=== PATIENT | male | born 1950 | race Caucasian/White ===

== ENCOUNTER 2021-04-16 20:04 | Observation (INO) | payer MEDICARE, OTHER, SELFPAY ==
[2021-04-16] VITALS (10 sets, daily range): BP systolic 114–150; BP diastolic 68–85; PULSE 51–62; RESP 13–18; TEMP 36.4; O2SAT 96–100
--- NOTE | 2021-04-16 20:13 | DI.RAD.S_ITS ---
PROCEDURE: XR CHEST 1V INDICATIONS: chest pain TECHNIQUE: One view of the chest was acquired. COMPARISON: None. FINDINGS: Surgical changes and devices: None. Lungs and pleura: Lungs are clear. No pleural effusions or pneumothorax. Mediastinum: Mediastinal contours appear normal. Heart size is normal. Bones and chest wall: No suspicious bony lesions. Overlying soft tissues appear unremarkable. IMPRESSION: No evidence acute pulmonary process. Dictated by: Valentín Hollins M.D. on 04/16/2021 at 20:56 Approved by: Valentín Hollins M.D. on 04/16/2021 at 20:57
--- NOTE | 2021-04-16 20:15 | ED_ITS ---
HPI - Chest Pain General Chief Complaint: Chest Pain Stated Complaint: not feeling right, hx of mild heart attack Time Seen by Provider: 04/16/21 20:13 History of Present Illness HPI narrative: 70M nonsmoker with history of mild heart attack presents with his in the chief complaint of left-sided chest pressure with radiation down his left arm that started about 2 hours ago. He was working in his garage on a [id number] when his symptoms started he states he felt a bit weird, more fatigued than normal with the pressure as noted. He states he thinks he gets worse with exertion and seems to have improved with rest. He denies associated symptoms such as nausea, vomiting or diarrhea. He has had no unexplained diaphoresis. He denies any change in medications or dietary change. Related Data Allergies Allergy/AdvReac Type Severity Reaction Status Date / Time No Known Drug Allergies Allergy Verified 04/16/21 20:41 Review of Systems Review of Systems Narrative: GENERAL: Denies chills, fatigue, malaise, fever, sweats. HEENT: Denies sinus pain, ear pain, sore throat, difficulty swallowing, dizziness. RESPIRATORY: See HPI CARDIOVASCULAR: See HPI GASTROINTESTINAL: Denies nausea, vomiting, abdominal pain, diarrhea, constipation, melena. : Denies dysuria, frequency, incontinence, hematuria, urinary retention. MUSCULOSKELETAL: denies weakness, joint pain, or bony pain SKIN: Denies rash, skin lesions, or other NEUROLOGIC: Denies weakness, headache, numbness, change in speech, confusion, seizures, incoordination. PSYCHIATRIC: No concerning psychosocial issues. 12 point review of systems is negative except for those stated above Patient History Medical History (Updated 04/17/21 @ 03:36 by Dallin Valles DO) Diabetes type 2, controlled Essential hypertension Hyperlipidemia Surgical History (Updated 04/17/21 @ 01:44 by MOE Alexander) Amputation of left thumb Social History household members: spouse Smoking Status: Former smoker alcohol intake: former Exam Narrative Exam Narrative: GENERAL: [70] year old patient appears stated age. Well- developed patient, in mild distress. HEAD: Atraumatic. Normocephalic. EYES: Pupils equal round and reactive. Extraocular motions intact. No scleral icterus. No injection or drainage. ENT: Nose without bleeding, purulent drainage. Throat without erythema, tonsillar hypertrophy or exudate. Airway patent. NECK: Trachea midline. Non tender CARDIOVASCULAR: Regular rate and rhythm without murmurs, gallops, or rubs. RESPIRATORY: Clear to auscultation. Breath sounds equal bilaterally. No wheezes, rales, or rhonchi. GASTROINTESTINAL: Abdomen soft, non-tender, nondistended. EXTREMITIES: No edema or joint tenderness. BACK: Nontender without deformity or crepitance. No flank tenderness. NEURO: AOx3. SKIN: No rash or erythema of visible areas Initial Vital Signs Initial Vital Signs: Vital Signs Temperature 97.5 F L 04/16/21 20:13 Pulse Rate 61 04/16/21 20:13 Respiratory Rate 18 04/16/21 20:13 Blood Pressure 116/70 04/16/21 20:13 Pulse Oximetry 100 04/16/21 20:13 Course Orders Ordered: ED Orders 04/16/21 20:13 XR chest 1V Stat 04/16/21 20:15 EKG-12 Lead Stat 04/16/21 20:20 Complete Blood Count AUTO DIFF Stat Comprehensive Metabolic Panel Stat Lipase Stat NT-proBNP (BNP-Adult 18+) Stat Troponin & CK Cardiac Panel Stat 04/16/21 20:53 EKG-12 Lead Routine 04/16/21 22:03 COVID19 - ADMIT ([employer] swab/PCR) Stat Acetaminophen (Acetaminophen 325 Mg Tablet) 650 mg PO Q6HR PRN PRN Reason: Fever/Mild Pain (1-3) Aspirin (Aspirin Ec 81 Mg Tablet) 81 mg PO DAILY YOHAN Atorvastatin Calcium (Atorvastatin 20 Mg Tablet) 40 mg PO BEDTIME YOHAN Dextrose (Dextrose 50 % In Water 25 Gm/50 Ml Syringe) 25 gm IV PRN PRN PRN Reason: Hypoglycemia Dextrose (Dextrose 50 % In Water 25 Gm/50 Ml Syringe) 25 gm IV PRN PRN PRN Reason: Hypoglycemia Donepezil HCl (Donepezil 5 Mg Tablet) 10 mg PO BEDTIME YOHAN Enoxaparin Sodium (Enoxaparin 40 Mg/0.4 Ml Syringe) 40 mg SUBCUT DAILY [facility] Sodium Chloride (Normal Saline 0.9%) 1,000 mls @ 150 mls/hr IV CONT YOHAN Last Infusion: 04/17/21 00:07 Dose: 150 mls/hr Documented by: Admin: 04/16/21 20:35 Dose: 150 mls/hr Documented by: LYNDON Insulin Human Lispro (Insulin Lispro 100 Unit/Ml 3ml Vial) 0 unit SUBCUT ACHS YOHAN; Protocol Lisinopril (Lisinopril 20 Mg Tablet) 20 mg PO DAILY YOHAN Metoprolol Succinate (Metoprolol Er 50 Mg Tablet) 50 mg PO DAILY YOHAN Morphine Sulfate (Morphine 2 Mg/Ml Inj) 2 mg IV Q5MIN PRN PRN Reason: Chest Pain Naloxone HCl (Naloxone 0.4 Mg/Ml Vial) 0.2 mg IV Q2MIN PRN PRN Reason: Opiate Reversal Nitroglycerin (Nitroglycerin 0.4 Mg Sl Tab) 0.4 mg SL [id number] PRN PRN Reason: Chest Pain Last Admin: 04/16/21 20:36 Dose: 0.4 mg Documented by: LYNDON Nitroglycerin (Nitroglycerin 0.4 Mg Sl Tab) 0.4 mg SL [id number] PRN PRN Reason: Chest Pain Ondansetron HCl (Ondansetron 4 Mg/2 Ml Inj) 4 mg IV Q8HR PRN PRN Reason: Nausea And Vomiting Discontinued Medications Aspirin (Aspirin 81 Mg Chew Tab) 324 mg PO NOW ONE Stop: 04/16/21 20:14 Last Admin: 04/16/21 20:34 Dose: 324 mg Documented by: LYNDON Atorvastatin Calcium (Atorvastatin 20 Mg Tablet) 20 mg PO BEDTIME YOHAN Vital Signs Vital signs: Vital Signs - 8 hr 04/16/21 20:13 04/16/21 20:15 04/16/21 20:36 Temperature 97.5 F L Pulse Rate 61 57 L 57 L Respiratory Rate 18 Blood Pressure 116/70 150/85 H 150/85 H Pulse Oximetry 100 99 04/16/21 20:45 04/16/21 21:00 04/16/21 21:30 Temperature Pulse Rate 62 57 L 55 L Respiratory Rate 13 16 15 Blood Pressure 120/68 119/71 114/68 Pulse Oximetry 96 97 98 04/16/21 22:00 Temperature Pulse Rate 54 L Respiratory Rate 14 Blood Pressure 129/70 Pulse Oximetry 99 MDM - Chest Pain Lab Data Result diagrams: 04/16/21 20:20 04/16/21 20:20 Labs: Lab Results 04/16/21 04/16/21 04/16/21 Range/Units 20:20 20:20 20:20 WBC 5.3 (4.5-11.0) X10^3/uL RBC 4.75 (4.5-5.9) X10^6/uL Hgb 14.1 (13.5-17.5) g/dL Hct 42.8 (41-53) % MCV 89.9 (80-100) fL MCH 29.7 (26-34) PG MCHC 33.0 (30-36) % RDW 14.2 (11.6-14.8) % Plt Count 238 (150-400) X10^3/uL Neut % (Auto) 63.5 (50-75) % Lymph % (Auto) 21.6 L (25-40) % [place] % (Auto) 9.8 (3-14) % Eos % (Auto) 4.2 H (2-4) % Baso % (Auto) 0.9 (0-2) % Neut # (Auto) 3400 (1839-2579) /uL Lymph # (Auto) 1100 (9304-8923) /uL [place] # (Auto) 500 (0-900) /uL Eos # (Auto) 200 (0-450) /uL Baso # (Auto) 100 (0-100) /uL Sodium 139 (137-145) mmol/L Potassium 4.1 (3.4-5.1) mmol/L Chloride 104 (98-107) mmol/L Carbon Dioxide 28 (22-32) mmol/L BUN 19 (9-20) mg/dL Creatinine 1.20 (0.66-1.25) mg/dL Estimated GFR 59.9 L (>60) mL/min BUN/Creatinine Ratio 15.8 (6-22) Glucose 124 H (80-110) mg/dL Hemoglobin A1c 5.6 (4.0-6.0) % Calcium 9.6 (8.4-10.2) mg/dL Total Bilirubin 0.3 (0.2-1.3) mg/dL AST 38 (17-59) IU/L ALT 31 (<50) IU/L Alkaline Phosphatase 95 (38-126) U/L Total Creatine Kinase 209 H (55-170) U/L CK-MB (CK-2) 1.75 (<2.37) ng/mL CK-MB (CK-2) Rel Index 0.8 L (1.5-5.0) % Troponin I < 0.012 (0.01-0.034) ng/mL NT-Pro-B Natriuret Pep 54 (<125) pg/mL Total Protein 7.1 (6.3-8.2) g/dL Albumin 4.6 (3.5-5.0) g/dL Globulin 2.5 (1.7-4.1) g/dL Albumin/Globulin Ratio 1.8 (1.0-2.8) Lipase 140 (23-300) U/L SARS-CoV-2 (PCR) (Negative) 04/16/21 Range/Units 22:03 WBC (4.5-11.0) X10^3/uL RBC (4.5-5.9) X10^6/uL Hgb (13.5-17.5) g/dL Hct (41-53) % MCV (80-100) fL MCH (26-34) PG MCHC (30-36) % RDW (11.6-14.8) % Plt Count (150-400) X10^3/uL Neut % (Auto) (50-75) % Lymph % (Auto) (25-40) % [place] % (Auto) (3-14) % Eos % (Auto) (2-4) % Baso % (Auto) (0-2) % Neut # (Auto) (9009-3776) /uL Lymph # (Auto) (5921-4502) /uL [place] # (Auto) (0-900) /uL Eos # (Auto) (0-450) /uL Baso # (Auto) (0-100) /uL Sodium (137-145) mmol/L Potassium (3.4-5.1) mmol/L Chloride (98-107) mmol/L Carbon Dioxide (22-32) mmol/L BUN (9-20) mg/dL Creatinine (0.66-1.25) mg/dL Estimated GFR (>60) mL/min BUN/Creatinine Ratio (6-22) Glucose (80-110) mg/dL Hemoglobin A1c (4.0-6.0) % Calcium (8.4-10.2) mg/dL Total Bilirubin (0.2-1.3) mg/dL AST (17-59) IU/L ALT (<50) IU/L Alkaline Phosphatase (38-126) U/L Total Creatine Kinase (55-170) U/L CK-MB (CK-2) (<2.37) ng/mL CK-MB (CK-2) Rel Index (1.5-5.0) % Troponin I (0.01-0.034) ng/mL NT-Pro-B Natriuret Pep (<125) pg/mL Total Protein (6.3-8.2) g/dL Albumin (3.5-5.0) g/dL Globulin (1.7-4.1) g/dL Albumin/Globulin Ratio (1.0-2.8) Lipase (23-300) U/L SARS-CoV-2 (PCR) Negative (Negative) Imaging Data Chest x-ray: Radiologist's Impression: [address] [address] XRay Report Signed Patient: Chon Nguyễn MR#: [id number] : 1950 Acct:[id number] Age/Sex: 70 / M Date of Service: 04/16/21 Loc: ED Accession Number: [id number] ?? Procedure: XR chest 1V Ordering Provider: Dallin Valles D.O. PROCEDURE:? XR CHEST 1V ? INDICATIONS:? chest pain ? TECHNIQUE:? One view of the chest was acquired.? ? COMPARISON:? None. ? FINDINGS:? ? Surgical changes and devices:? None.? ? Lungs and pleura:? Lungs are clear.? No pleural effusions or pneumothorax.? ? Mediastinum:? Mediastinal contours appear normal.? Heart size is normal.? ? Bones and chest wall:? No suspicious bony lesions.? Overlying soft tissues appear unremarkable.? ? IMPRESSION:? No evidence acute pulmonary process. ? ? ? Dictated by: Valentín Hollins M.D. on 04/16/2021 at 20:56 ? ? Approved by: Valentín Hollins M.D. on 04/16/2021 at 20:57 ? MDM Narrative Medical decision making narrative: Patient with a concerning presentation of left-sided present chest pressure and radiation to his left arm that seemed to improve slightly with rest. Multiple EKGs are nonocclusive and troponin is unremarkable. Pain went away completely with nitro. Patient requires hospita lization for trending of cardiac enzymes and inpatient workup including echo and stress test Discharge Plan Departure Patient Disposition: Admitted as Observation Clinical Impression: Chest pain Admit Date/Time: 04/16/21 22:04 Admit Provider: Cinthia Fournier
[2021-04-16 20:25] LABS: Add Manual Diff / Slide Review NO; Basophils Absolute Auto 100 /uL (0-100); Basophils Percent Auto 0.9 % (0-2); Eosinophils Absolute Auto 200 /uL (0-450); Eosinophils Percent Auto 4.2 % (2-4); Hematocrit 42.8 % (41-53); Hemoglobin 14.1 g/dL (13.5-17.5); Lymphocytes Absolute Auto 1100 /uL (1100-4500); Lymphocytes Percent Auto 21.6 % (25-40); Mean Corpuscular Hemoglobin 29.7 PG (26-34); Mean Corpuscular Volume 89.9 fL (80-100); Monocytes Absolute Auto 500 /uL (0-900); Monocytes Percent Auto 9.8 % (3-14); Neutrophils Absolute Auto 3400 /uL (1500-7000); Neutrophils Percent Auto 63.5 % (50-75); Platelet Count 238 X10^3/uL (150-400); Red Blood Cell Count 4.75 X10^6/uL (4.5-5.9); Red Cell Distribution Width 14.2 % (11.6-14.8); White Blood Cell Count 5.3 X10^3/uL (4.5-11.0)
[2021-04-16] MEDS: ASPIRIN 81 MG CHEW TAB 324 MG PO (20:34)
[2021-04-16] MEDS: SODIUM CHLORIDE 0.9% 1,000 ML 150 ML IV (20:35)
[2021-04-16] MEDS: NITROGLYCERIN 0.4 MG SL TAB SL (20:36)
[2021-04-16 20:48] LABS: Alanine Aminotransferase 31 IU/L (<50); Albumin 4.6 g/dL (3.5-5.0); Albumin Globulin Ratio 1.8 (1.0-2.8); Alkaline Phosphatase 95 U/L (38-126); Aspartate Aminotransferase 38 IU/L (17-59); BUN Creatinine Ratio 15.8 (6-22); Bilirubin Total 0.3 mg/dL (0.2-1.3); Blood Urea Nitrogen 19 mg/dL (9-20); Calcium 9.6 mg/dL (8.4-10.2); Carbon Dioxide 28 mmol/L (22-32); Chloride 104 mmol/L (98-107); Creatine Kinase 209 U/L (55-170); Estimated Glomerular Filt Rate 59.9 mL/min (>60); Globulin 2.5 g/dL (1.7-4.1); Glucose 124 mg/dL (80-110); HEMOLYSIS 17 (0-50); Lipase 140 U/L (23-300); Potassium 4.1 mmol/L (3.4-5.1); Sodium 139 mmol/L (137-145); Total Protein 7.1 g/dL (6.3-8.2)
[2021-04-16 21:00] LABS: NT-proBNP (BNP-Adult 18+) 54 pg/mL (<125); Troponin I < 0.012 ng/mL (0.01-0.034)
[2021-04-16 21:03] LABS: CKMB % Relative Index 0.8 % (1.5-5.0); Creatine Kinase MB 1.75 ng/mL (<2.37)
[2021-04-16 23:05] LABS: COVID19 - ADMIT (NP swab/PCR) Negative (Negative)
--- NOTE | 2021-04-17 | DI.ECHO.S_ITS ---
[place] [facility]---------+ [facility] +---------+ : : [address] : : : : [id number] : : : : Phone: [phone]+ Echocardiogram Report + + :Name: SHUN CORNELL Study Date: 04/17/2021 Height: 69 in : :[facility] ReadingLocation: Weight: 190 lb : : Gender: Male BSA: 2.0 m2 : :: 1950 Age: 71 yrs BP: 119/71 mmHg: :Reason For Study: CHEST PAIN : :Ordering Physician: Tony PAIZformed By: Caitlin Ag : :Referring: CONCHIS PAIZ : + + Interpretation Summary 1) Normal left ventricular thickness, size, wall motion, and systolic function (EF 60-65%). 2) Upper normal right ventricular size with normal function. 3) There is mild aortic regurgitation. 4) No prior Echo available for comparison. Procedure: A two-dimensional transthoracic echocardiogram with color flow and Doppler was performed. The study quality was technically adequate. There is no prior echocardiogram noted for this patient. The patient was in sinus rhythm with heart rates between 52-62 bpm during the exam. Left Ventricle: The left ventricle is normal in size and wall thickness. The ejection fraction is estimated to be 60-65%. Left ventricular systolic function appears normal without focal wall motion abnormalities. Right Ventricle: The right ventricle is at the upper limits of normal in size. The right ventricular systolic function is normal. Atria: The left atrium is mildly dilated. The right atrium is moderately dilated. There is no Doppler evidence for an interatrial shunt. Mitral Valve: The mitral valve is normal in structure and function. There is trace mitral regurgitation. Aortic Valve: The aortic valve is trileaflet. The aortic valve opens well. There is no aortic valve stenosis. There is mild aortic regurgitation. Tricuspid Valve: The tricuspid valve is normal in structure and function. There is trace tricuspid regurgitation. Pulmonary artery pressures cannot be estimated because of the lack of a measurable TR jet velocity but the IVC suggests a CVP of around 3 mmHg. Pulmonic Valve: The pulmonic valve leaflets are thin and pliable; valve motion is normal. There is trace pulmonic regurgitation. Great Vessels: The aortic root is normal size. The ascending aorta is at the upper limits of normal in size. The IVC is of normal diameter and collapses greater than 50% with a sniff. This suggests a low right atrial pressure of 3 mm Hg. Pericardium/ Pleura There is no pericardial effusion. There is no pleural effusion. MMode/2D Measurements & Calculations LVIDd: 5.3 cm LVOT diam: 2.1 cm LVIDs: 3.5 cm Ao root diam: 3.5 cm FS: 34.9 % asc Aorta Diam: 3.4 cm IVSd: 1.0 cm LVPWd: 0.74 cm LV hirsch. diameter/BSA (cm/m^2): 2.6 LV sys. diameter/BSA (cm/m^2): 1.7 LA A2 area: 23.4 cm2 RA long axis: 6.0 cm LA A4 area: 21.0 cm2 RA area: 24.9 cm2 LA length (vol): 5.8 cm RA vol: 87.5 ml LA vol: 72.4 ml RA : 43.3 ml/m2 LA vol index: 35.8 ml/m2 IVC diam: 1.6 cm RVD1 (basal): 4.2 cm TAPSE: 2.6 cm Doppler Measurements & Calculations Ao V2 max: 123.0 cm/sec LVOT Max Cl: 90.3 cm/sec Ao V2 mean: 86.8 cm/sec LV V1 max P.3 mmHg Ao max P.1 mmHg LV V1 VTI: 21.3 cm Ao mean P.4 mmHg LETI(I,D): 2.6 cm2 Ao V2 VTI: 29.3 cm LETI(V,D): 2.6 cm2 sev ratio: 0.73 LETI indexed to BSA (cm^2/m^2): 1.3 MV E max cl: 89.8 cm/sec PA V2 max: 81.0 cm/sec MV A max cl: 100.0 cm/sec PA V2 mean: 54.1 cm/sec MV E/A: 0.90 PA mean P.4 mmHg Med Peak E' Cl: 5.8 cm/sec PA pr(Accel): 27.6 mmHg E/E' med: 15.6 Lat Peak E' Cl: 8.1 cm/sec E/E' lat: 11.1 E/e' average: 13.3 MV dec time: 0.30 sec SV(LVOT): 76.6 ml Reading Physician:12:32 PM
[2021-04-17 00:02] VITALS: BMI 28.0
[2021-04-17 00:23] VITALS: BP 149/69; PULSE 56; RESP 16; TEMP 36.2; O2SAT 99
--- NOTE | 2021-04-17 01:37 | PM.HP.1 ---
History of Present Illness History of Present Illness Date Patient Seen: 04/17/21 Time Patient Seen: 00:30 Chief complaint: not feeling right, hx of mild heart attack Narrative: Chon Nguyễn is a 71-year-old male resident of [place] who has medical history of hypertension, ?prediabetes, and a fairly new diagnosis of memory impairment and Alzheimer's presented to the emergency department with left-sided chest pain that he felt after dinner that resolved with rest and nitroglycerin. He only describes it as ?not feeling right?. He states that he was told at least 20 years ago that he had a prior heart attack. He denies headaches, fevers sweats or chills, difficulty swallowing, shortness of breath, nausea vomiting, abdominal pain, dysuria, diarrhea or constipation, weakness or tingling of the upper and lower extremities, or rashes. In the emergency department EKG does indicate a prior infarct and 1 from 2014 indicates an incomplete right bundle branch. Chest x-ray was within normal limits. Patient's vitals on the floor currently are 97.2, blood pressure 149/69, heart rate 56, respiratory rate 16, and saturation 99% on room air, he weighs 86.1 kg with a BMI of 28. CBC is unremarkable, creatinine is 1.0 with a EGFR 59.9, glucose 124, A1c is pending, troponin is within normal limits and the 2nd 1 is pending COVID-19 PCR is negative. Patient History Medical History (Updated 04/17/21 @ 01:43 by MOE Alexander) Diabetes type 2, controlled Essential hypertension Hyperlipidemia Surgical History (Updated 04/17/21 @ 01:44 by MOE Alexander) Amputation of left thumb Family & Social History Social History: household members spouse Prior Living Arrangements House Safety & Behavioral: Feels Safe in Current Yes Environment Been Physically Hurt or No Threatened By a Person Suicidal Ideation Description None Suicide Plan Description No Plan Tobacco & Substance use: Smoking Status Former smoker quit 30 years ago alcohol intake denies Substance Use Type does not use Meds Home Medications and Allergies Allergies Allergy/AdvReac Type Severity Reaction Status Date / Time No Known Drug Allergies Allergy Verified 04/16/21 20:41 Review of Systems Review of Systems ROS: Yes All systems reviewed with the patient and are negative except as otherwise documented Exam Vital Signs (past 8 hours): - 04/16/21 20:13 04/16/21 20:15 04/16/21 20:36 Temperature 97.5 F L Pulse Rate 61 57 L 57 L Respiratory Rate 18 Blood Pressure 116/70 150/85 H 150/85 H Pulse Oximetry 100 99 04/16/21 20:45 04/16/21 21:00 04/16/21 21:30 Temperature Pulse Rate 62 57 L 55 L Respiratory Rate 13 16 15 Blood Pressure 120/68 119/71 114/68 Pulse Oximetry 96 97 98 04/16/21 22:00 04/16/21 22:30 04/16/21 23:00 Temperature Pulse Rate 54 L 52 L 51 L Respiratory Rate 14 14 14 Blood Pressure 129/70 119/71 125/70 Pulse Oximetry 99 99 99 04/16/21 23:30 04/17/21 00:23 Temperature 97.2 F L Pulse Rate 54 L 56 L Respiratory Rate 14 16 Blood Pressure 131/75 149/69 H Pulse Oximetry 100 99 Oxygen Delivery Method Room Air Oxygen Flow Rate 0 Narrative Exam Narrative: Gen: Alert, oriented, well-developed 71 y.o. male, appears startled when addressed HEENT: normocephalic, atraumatic, conjunctiva clear, sclera non-icteric, oral mucosa pink and moist Neck: supple, full ROM, no JVD, trachea is midline Resp: Lungs CTA, non-labored breathing CV: RRR, no murmur or rubs Abd: soft, non-tender, normoactive BTs Skin: significant sun exposure, no lesions or rashes, dry and intact Neuro: Alert and oriented X 4 w/no focal deficits. Speech clear and coherent. Extremities: moves all 4 extremities, is ambulatory, negative Maxwell?s sign Psyche: normal mood and affect. Objective Labs Result Diagrams: 04/16/21 20:20 04/16/21 20:20 Labs: Laboratory Results - last 24 hr 04/16/21 04/16/21 04/16/21 20:20 20:20 22:03 WBC 5.3 RBC 4.75 Hgb 14.1 Hct 42.8 MCV 89.9 MCH 29.7 MCHC 33.0 RDW 14.2 Plt Count 238 Neut % (Auto) 63.5 Lymph % (Auto) 21.6 L [place] % (Auto) 9.8 Eos % (Auto) 4.2 H Baso % (Auto) 0.9 Neut # (Auto) 3400 Lymph # (Auto) 1100 [place] # (Auto) 500 Eos # (Auto) 200 Baso # (Auto) 100 Sodium 139 Potassium 4.1 Chloride 104 Carbon Dioxide 28 BUN 19 Creatinine 1.20 Estimated GFR 59.9 L BUN/Creatinine Ratio 15.8 Glucose 124 H Calcium 9.6 Total Bilirubin 0.3 AST 38 ALT 31 Alkaline Phosphatase 95 Total Creatine Kinase 209 H CK-MB (CK-2) 1.75 CK-MB (CK-2) Rel Index 0.8 L Troponin I < 0.012 NT-Pro-B Natriuret Pep 54 Total Protein 7.1 Albumin 4.6 Globulin 2.5 Albumin/Globulin Ratio 1.8 Lipase 140 SARS-CoV-2 (PCR) Negative Assessment & Plan Assessment & Plan narrative: Diego Nguyễn will be observed overnight and will undergo continued workup for exertional chest pain Chest pain r/o ACS, acute, present on admission ? Echo in am ? Pharmacological stress test ? Start ASA 81 mg ? Received nitro X 1 in the ED ? EKG shows old incomplete right bundle ? Trend troponin X 3 Hypertension ? continue home dose of lisinopril 20 mg p.o. daily and metoprolol 50 mg p.o. daily HLD ? Lipid panel, pending ? increaseatorvastatin 40 mg po at bedtime Risk stratification ? Fasting lipid panel scheduled for 0500 labs ? A1c [5.6]% indicating good control VTE Prophylaxis: Wells risk score 0 Enoxaparin 40 mg subQ once daily Patient is placed into observation as his stay is not expected to exceed 2 midnights. FEN: IV fluids: saline lock, diet: carb controlled diet, labs: CBC, C/BMP, liver enzymes, Mag, Consultants None. Dispo: Probable discharge to home Code status: Full as discussed with the patient who does not identify his as his POA [X] I have utilized all available immediate resources to obtain, update, or review of the patient's current medications COVID-19 COVID-19 status: Negative Result date/Date tested (Pos, Neg/Pending): 04/16/21 Time Spent With Patient Critical Care time: I spent a total of [] minutes of critical care time on this patient's care today; this time is exclusive of procedural time. Scores Wells' Criteria for PE Clinical signs and symptoms of DVT: No PE is #1 Dx or equally likely: No Heart rate > 100: No Immobilization at least 3 days or surg in previous 4 weeks: No History of PE or DVT: No Hemoptysis: No Malignancy w/Treatment within 6 months or palliative: No Wells' PE Score total: 0 Quality AMI Clinical Trial Participant: No VTE Deep Vein Thrombosis/Pulmonary Embolism Present on Admission: No MIPS - Admit I confirm the patient?s Advance Care Plan is present, Code status is documented, Surrogate decision maker is in patient?s record [If Yes, STOP here]: Yes The patient?s Advance Care plan is not present because I confirmed today that the patient does not wish or was not able to name a surrogate decision maker or provide an Advance Care Plan.: Yes MIPS - DC The patient has current or prior documentation of left ventricular ejection fraction (LVEF) less than 40%, or moderate or severely depressed left ventricular systolic function.: No
[2021-04-17 01:38] LABS: Hemoglobin A1C% w Est Avg Glu 5.6 % (4.0-6.0)
--- NOTE | 2021-04-17 01:54 | PC.NURSE ---
0002 Admitted from ER, with C/O CP. Denies any chest pain & no C/O dyspnea @ this time. oriented to his room showed him how to used his call light, TV & bed controls. Pt. was accompanied by his Jerica, admit assessment questions was answered by pt. spouse. Denies any recent fall, pt. was diagnosed with mild dementia per spouse reports. Bed alarm activated & encouraged to call for assistance if he needed to get up OOB to use the urinal or to the BR. Call light within reached, will monitor.
[2021-04-17 02:39] LABS: Troponin I < 0.012 ng/mL (0.01-0.034)
[2021-04-17 03:46] VITALS: BP 131/63; PULSE 60; RESP 16; TEMP 36.2; O2SAT 97
[2021-04-17] MEDS: SODIUM CHLORIDE 0.9% FLUSH 10 ML IV ×2 (04:51→08:33)
[2021-04-17 07:02] LABS: Add Manual Diff / Slide Review NO; Basophils Absolute Auto 0 /uL (0-100); Eosinophils Absolute Auto 200 /uL (0-450); Eosinophils Percent Auto 5.3 % (2-4); Hematocrit 40.5 % (41-53); Hemoglobin 13.5 g/dL (13.5-17.5); Lymphocytes Absolute Auto 1200 /uL (1100-4500); Lymphocytes Percent Auto 26.5 % (25-40); Mean Corpuscular HGB Conc 33.3 % (30-36); Mean Corpuscular Hemoglobin 30.2 PG (26-34); Mean Corpuscular Volume 90.6 fL (80-100); Monocytes Absolute Auto 500 /uL (0-900); Monocytes Percent Auto 10.7 % (3-14); Neutrophils Absolute Auto 2500 /uL (1500-7000); Neutrophils Percent Auto 56.5 % (50-75); Platelet Count 219 X10^3/uL (150-400); Red Blood Cell Count 4.47 X10^6/uL (4.5-5.9); Red Cell Distribution Width 13.9 % (11.6-14.8); White Blood Cell Count 4.4 X10^3/uL (4.5-11.0)
[2021-04-17 07:06] LABS: BUN Creatinine Ratio 18.3 (6-22); Blood Urea Nitrogen 15 mg/dL (9-20); Calcium 9.2 mg/dL (8.4-10.2); Carbon Dioxide 28 mmol/L (22-32); Chloride 106 mmol/L (98-107); Cholesterol 192 mg/dL (140-199); Estimated Glomerular Filt Rate > 60.0 mL/min (>60); Glucose 94 mg/dL (80-110); HDL Cholesterol 51 mg/dL (40-60); HEMOLYSIS < 15 (0-50); LDL Cholesterol Calculated 119 mg/dL (<100); Potassium 4.3 mmol/L (3.4-5.1); Sodium 139 mmol/L (137-145); Triglycerides 109 mg/dL (35-150)
[2021-04-17 07:10] VITALS: BP 117/73; PULSE 60; RESP 16; TEMP 36.2; O2SAT 99
--- NOTE | 2021-04-17 07:53 | PC.NURSE ---
Patient resting comfortably in bed, denies pain. Patient states I feel ready to go home. NPO at this time for nuc med stress test, and order for ECHO. Urinal and call light within reach. Bed alarm active. Continue to monitor.
[2021-04-17] MEDS: ASPIRIN EC 81 MG TABLET PO (08:33)
[2021-04-17] MEDS: ENOXAPARIN 40 MG/0.4 ML SYRINGE SUBCUT (08:33)
--- NOTE | 2021-04-17 09:26 | CM.DANOTE ---
DCP: Case received, EMR reviewed and met with patient. Introduced self and role. Was able to obtain information regarding patient's baseline activity status prior to hospitalization. DCP assessment completed with information currently available. Patient is a 71 year old male who admitted yesterday evening to the care of the hospitalist team. PCP: Patient can't remember the name of provider. Payer: confirmed: Medicare/[employer]. Patient came to the hospital via private vehicle secondary to having some chest discomfort. According to notes, patient had been working in his garage when the symptoms occurred. He does have history of AL, as well as HTN. He was also recently diagnosed with memory impairment. Patient is here for a cardiac work up. Met with patient in his room. He was sitting up in bed, pleasant, alert and oriented. Confirmed that he resides with his spouse, Jerica, in [place]. Asked him if he had a primary care provider, he stated, I'm not sure of the name, they move around so much, or retire, and it's hard to remember. He mentioned, his might know. He stated that he is independent as far as mobility, and indicated that he is still driving. P: DCP to continue to follow. Patient should be able to go home when he is deemed medically stable. Alisson Jeffrey RN/Counter Top Assembler
[2021-04-17 09:42] LABS: Troponin I < 0.012 ng/mL (0.01-0.034)
[2021-04-17 12:17] VITALS: BP 137/65; PULSE 59; RESP 16; TEMP 36.3; O2SAT 98
[2021-04-17 15:45] VITALS: BP 141/79; PULSE 55; RESP 18; TEMP 36.2; O2SAT 98
--- NOTE | 2021-04-17 17:52 | DI.NM.S_ITS ---
DATE OF SERVICE: 04/17/2021 PROCEDURE PERFORMED: Exercise perfusion study. INDICATIONS: Chest pain with underlying hypertension, prediabetes. RADIOPHARMACEUTICAL: 23.2 millicurie technetium-99m Myoview IV was injected at stress and 12.6 millicurie technetium-99m Myoview IV was injected at rest. CARDIAC STRESS: The patient underwent exercise perfusion study under the supervision of an attending staff. The patient walked on Johnny protocol for 7 minutes and 29 seconds, achieved 87 percent of target heart rate, 10.1 METs of workload and functional aerobic impairment -30 percent. There was normal blood pressure response. Baseline blood pressure 130/86. Peak blood pressure 178/90. No anginal symptoms. Baseline rhythm was sinus with first-degree AV block and mild sinus bradycardia. During stress, there were no convincing ischemic changes. There was no new significant arrhythmias seen. RAW DATA: There is increased subdiaphragmatic activity. There is a radiolucent shadow near the inferior border of the heart, as well. GATED STUDY: Resting stress LV ejection fraction 73 percent without any obvious wall motion abnormalities. Resting end-diastolic volume 130 mL. TID ratio 0.85, which is within normal limits. Lung/heart ratio 0.32, which is within normal limits. MYOCARDIAL PERFUSION SCAN: Stress supine, resting supine and stress prone images were compared to each other. There appears to be moderate size, mild to moderately decreased perfusion of inferior wall, inferoapex, as well as extension into the inferolateral wall and distal anteroseptum, which got completely resolved during prone images, suggestive of tissue attenuation artifact. No convincing ischemia or infarction pattern seen. CONCLUSION: I will call this study a normal myocardial perfusion study with evidence of tissue attenuation artifact ,as stated above, which got resolved during prone images. Good exercise tolerance. Normal hemodynamic response. No ischemic electrocardiographic changes. No significant arrhythmias. No anginal symptoms. Overall, this is a low-risk myocardial perfusion study. Chon Nguyễn - [place]/anupam/kerry doc#: [id number]/job#: [id number] dd: 04/17/2021 17:00:00 dt: 04/17/2021 17:41:00 DICTATING MD/COPIES TO: Ricky Mcclain MD COPIES MNE: TOSHIA;
[2021-04-17] MEDS: INSULIN LISPRO 100 UNIT/ML 3ML VIAL SUBCUT (17:57)
--- NOTE | 2021-04-17 18:32 | P.DS_ITS ---
History of Present Illness History of Present Illness Date Patient Seen: 04/17/21 Time Patient Seen: 18:32 Chief complaint: not feeling right, hx of mild heart attack Narrative: Per MOE Alexander: Chon Nguyễn is a 71-year-old male resident of [place] who has medical history of hypertension, ?prediabetes, and a fairly new diagnosis of memory impairment and Alzheimer's presented to the emergency department with left-sided chest pain that he felt after dinner that resolved with rest and nitroglycerin.? He only describes it as ?not feeling right?.? He states that he was told at least 20 years ago that he had a prior heart attack.? He denies headaches, fevers sweats or chills, difficulty swallowing, shortness of breath, nausea vomiting, abdominal pain, dysuria, diarrhea or constipation, weakness or tingling of the upper and lower extremities, or rashes. In the emergency department EKG does indicate a prior infarct and 1 from 2014 indicates an incomplete right bundle branch.? Chest x-ray was within normal limits.? Patient's vitals on the floor currently are 97.2, blood pressure 149/69, heart rate 56, respiratory rate 16, and saturation 99% on room air, he weighs 86.1 kg with a BMI of 28.? CBC is unremarkable, creatinine is 1.0 with a EGFR 59.9, glucose 124, A1c is pending, troponin is within normal limits and the 2nd 1 is pending COVID-19 PCR is negative. Discharge Providers Provider Date of admission: 04/16/21 22:04 Discharge Date: 04/17/21 Discharge provider: Robinson Mari DO Summary Hospital Course Discharge Diagnosis: 1. Chest pain r/o ACS, acute, present on admission 2. Hypertension 3. HLD 4. Dementia, chronic 5. CAD 6. Obesity with BMI 34.8 Hospital Course: This is a 71-year-old male with a past medical history of hypertension, hyperlipidemia, CAD with stents many years ago, fairly recent diagnosis of dementia who presented to the emergency room with chest pain. He was admitted for further evaluation given elevated heart score. The patient's echocardiogram revealed a normal ejection fraction with no significant wall motion abnormalities. He underwent nuclear stress testing which was a low risk study. Following the results of the stress test the patient was discharged home. He had no recurrence of his chest pain after admission to the floor. Recommend that he follow-up with his primary care provider as previously scheduled. No medication changes were recommended at the time of discharge. Exam Vital Signs (past 8 hours): - 04/17/21 12:17 04/17/21 15:45 Temperature 97.3 F L 97.1 F L Pulse Rate 59 L 55 L Respiratory Rate 16 18 Blood Pressure 137/65 141/79 H Pulse Oximetry 98 98 Oxygen Delivery Method Room Air Oxygen Flow Rate 0 Narrative Exam Narrative: Gen: Alert, oriented, well-developed 71 y.o. male, no acute distress HEENT: normocephalic, atraumatic, conjunctiva clear, sclera non-icteric, oral mucosa pink and moist Neck: supple, full ROM, no JVD, trachea is midline Resp: Lungs CTA, non-labored breathing CV: RRR, no murmur or rubs Abd: Soft, nontender, and nondistended Skin: no lesions or rashes, dry and intact Neuro: Alert and oriented X 4 w/no focal deficits. Speech clear and coherent. Extremities: No edema or joint effusions Psyche: normal mood and affect. Objective Labs Result Diagrams: 04/17/21 06:45 04/17/21 06:45 Labs: Laboratory Results - last 24 hr 04/16/21 04/16/21 04/16/21 20:20 20:20 20:20 WBC 5.3 RBC 4.75 Hgb 14.1 Hct 42.8 MCV 89.9 MCH 29.7 MCHC 33.0 RDW 14.2 Plt Count 238 Neut % (Auto) 63.5 Lymph % (Auto) 21.6 L [place] % (Auto) 9.8 Eos % (Auto) 4.2 H Baso % (Auto) 0.9 Neut # (Auto) 3400 Lymph # (Auto) 1100 [place] # (Auto) 500 Eos # (Auto) 200 Baso # (Auto) 100 Sodium 139 Potassium 4.1 Chloride 104 Carbon Dioxide 28 BUN 19 Creatinine 1.20 Estimated GFR 59.9 L BUN/Creatinine Ratio 15.8 Glucose 124 H Hemoglobin A1c 5.6 Calcium 9.6 Magnesium Total Bilirubin 0.3 AST 38 ALT 31 Alkaline Phosphatase 95 Total Creatine Kinase 209 H CK-MB (CK-2) 1.75 CK-MB (CK-2) Rel Index 0.8 L Troponin I < 0.012 NT-Pro-B Natriuret Pep 54 Total Protein 7.1 Albumin 4.6 Globulin 2.5 Albumin/Globulin Ratio 1.8 Triglycerides Cholesterol LDL Cholesterol, Calc HDL Cholesterol Lipase 140 SARS-CoV-2 (PCR) 04/16/21 04/17/21 04/17/21 22:03 02:10 06:45 WBC 4.4 L RBC 4.47 L Hgb 13.5 Hct 40.5 L MCV 90.6 MCH 30.2 MCHC 33.3 RDW 13.9 Plt Count 219 Neut % (Auto) 56.5 Lymph % (Auto) 26.5 [place] % (Auto) 10.7 Eos % (Auto) 5.3 H Baso % (Auto) 1.0 Neut # (Auto) 2500 Lymph # (Auto) 1200 [place] # (Auto) 500 Eos # (Auto) 200 Baso # (Auto) 0 Sodium Potassium Chloride Carbon Dioxide BUN Creatinine Estimated GFR BUN/Creatinine Ratio Glucose Hemoglobin A1c Calcium Magnesium Total Bilirubin AST ALT Alkaline Phosphatase Total Creatine Kinase CK-MB (CK-2) CK-MB (CK-2) Rel Index Troponin I < 0.012 NT-Pro-B Natriuret Pep Total Protein Albumin Globulin Albumin/Globulin Ratio Triglycerides Cholesterol LDL Cholesterol, Calc HDL Cholesterol Lipase SARS-CoV-2 (PCR) Negative 04/17/21 04/17/21 06:45 08:18 WBC RBC Hgb Hct MCV MCH MCHC RDW Plt Count Neut % (Auto) Lymph % (Auto) [place] % (Auto) Eos % (Auto) Baso % (Auto) Neut # (Auto) Lymph # (Auto) [place] # (Auto) Eos # (Auto) Baso # (Auto) Sodium 139 Potassium 4.3 Chloride 106 Carbon Dioxide 28 BUN 15 Creatinine 0.82 Estimated GFR > 60.0 BUN/Creatinine Ratio 18.3 Glucose 94 Hemoglobin A1c Calcium 9.2 Magnesium 2.0 Total Bilirubin AST ALT Alkaline Phosphatase Total Creatine Kinase CK-MB (CK-2) CK-MB (CK-2) Rel Index Troponin I < 0.012 NT-Pro-B Natriuret Pep Total Protein Albumin Globulin Albumin/Globulin Ratio Triglycerides 109 Cholesterol 192 LDL Cholesterol, Calc 119 H HDL Cholesterol 51 Lipase SARS-CoV-2 (PCR) [facility] Medical History (Updated 04/17/21 @ 03:36 by Dallin Valles DO) Diabetes type 2, controlled Essential hypertension Hyperlipidemia Surgical History (Updated 04/17/21 @ 01:44 by MOE Alexander) Amputation of left thumb Social History household members: spouse Smoking Status: Former smoker alcohol intake: former Discharge Plan Discharge Plan Patient Disposition: Home Provider Discharge Comment: You were admitted to the hospital with chest pain. Echocardiogram and stress testing were normal. No medication changes are recommended. Please follow up with your PCP as previously scheduled. Discharge orders & Medications Prescriptions: Continued metformin 500 mg tablet 500 mg PO BID RF: 0 lisinopril 20 mg Tablet 20 mg PO DAILY RF: 0 metoprolol succinate [Toprol XL] 50 mg Tablet Extended Release 24 Hr 50 mg PO DAILY RF: 0 donepezil 10 mg Tablet 10 mg PO DAILY RF: 0 omeprazole 20 mg Tablet,Delayed Release (Dr/Ec) 20 mg PO BID RF: 0 atorvastatin 20 mg Tablet 20 mg PO QPM RF: 0 aspirin 81 mg Tablet 81 mg PO DAILY RF: 0 memantine 20 mg tablet 20 mg PO BID RF: 0 Diet/Activity/Treatments Diet: Diet as Tolerated Activity: As tolerated Visit Report/Discharge Packet Instructions: DI for Chest Pain Discharge Data Attending Provider: Cinthia Fournier [facility] Clinical Trial Participant: No VTE Deep Vein Thrombosis/Pulmonary Embolism Present on Admission: No MIPS - DC The patient has current or prior documentation of left ventricular ejection fraction (LVEF) less than 40%, or moderate or severely depressed left ventricular systolic function.: No
--- NOTE | 2021-04-17 18:48 | PC.NURSE ---
Pt discharge home with . Discharge instructions/education given to patient and spouse. All personal bellongings with patient. Left the hospital vial wheelchair, escorted by [employer]. pt left in stable conditions.
== END 2021-04-17 18:51 | disposition home or self-care (01) ==
LOC: ED 20:14 → AC 22:05
PROVIDERS: Admitting Provider Nurse Practitioner Family; Emergency Provider Emergency Medicine; Referring Provider Emergency Medicine; Visit Provider Nurse Practitioner Family
DX: R07.9 Chest pain, unspecified (principal); I10 Essential (primary) hypertension; E78.5 Hyperlipidemia, unspecified; R73.03 Prediabetes; F03.90 Unspecified dementia, unspecified severity, without behavioral disturbance, psychotic disturbance, mood disturbance, and anxiety; I25.10 Atherosclerotic heart disease of native coronary artery without angina pectoris; E66.9 Obesity, unspecified; Z68.34 Body mass index [BMI] 34.0-34.9, adult; Z20.822 Contact with and (suspected) exposure to COVID-19
CPT/HCPCS: 36415; 71045; 78452; 80048; 80053; 80061; 82550; 82553; 82962; 83036; 83690; 83735; 83880; 84484; 85025; 87635; 93005; 93017; 93306; 96360; 96361; 96372; 99284; C9803; G0378; A9502; J1650; J1815